=== PATIENT | female | born 1985 | race Caucasian/White ===

== ENCOUNTER 2022-03-30 03:06 | Emergency (ER) | payer OTHER ==
[2022-03-30 03:21] VITALS: BP 109/64
[2022-03-30 03:30] VITALS: BP 104/72
[2022-03-30] MEDS ORDERED: BACTRIM DS1 TAB PO (03:31)
[2022-03-30 03:38] VITALS: BP 109/64
[2022-03-30] MEDS ORDERED: XANAX0.25 MG PO (04:05)
== END 2022-03-30 03:45 | disposition home or self-care (01) ==
LOC: ED 03:06
DX: L02.414 Cutaneous abscess of left upper limb (principal)